=== PATIENT | male | born 1965 | race Caucasian/White ===

== ENCOUNTER 2018-10-22 15:54 | Inpatient (IN) | payer MEDICAID ==
--- NOTE | 2018-10-22 16:50 | PCM.HP ---
H&P History of Present Illness - General Date of Service: 10/22/18 Admit Problem/Dx: Admission Diagnosis/Problem Admission Diagnosis/Problem SIRS due to infectious process without acute organ dysfunction Source of Information: Patient History Limitations: Reports: No Limitations - History of Present Illness Initial Comments - Free Text/Narative: This is a 53yo M here for nausea, weakness, fever and chills. He has had prior cellulitis of the left lower leg and admission to the hospital 3 times before. He returned to clinic today for assessment and is noted to have lower blood pressure, weakness, fever, chills, and cellulitis of the left lower leg that is worsening. He did take a keflex and a doxycycline today. Patient denies any chest pain or shortness of breath. Onset of Symptoms: Reports: Gradual Duration of Symptoms: Reports: Day(s):, Getting Worse Location: Reports: Lower Extremity, Left, Generalized Severity: Moderate Improves with: Reports: None Worsens with: Reports: None Associated Symptoms: Reports: Fever/Chills, Loss of Appetite, Malaise, Nausea/ Vomiting, Weakness - Related Data Allergies/Adverse Reactions: Allergies Allergy/AdvReac Type Severity Reaction Status Date / Time No Known Allergies Allergy Verified 10/22/18 16:39 Home Medications: Home Meds NK [No Known Home Meds] 10/22/18 [History] H&P Review of Systems - Review of Systems: Review Of Systems: ROS reveals no pertinent complaints other than HPI. Exam - Exam Exam: See Below - Exam General: Alert, Oriented, Cooperative HEENT: PERRLA, Conjunctiva Clear, EACs Clear, EOMI Neck: Supple, Trachea Midline Lungs: Clear to Auscultation, Normal Respiratory Effort Cardiovascular: Regular Rate, Regular Rhythm GI/Abdominal Exam: Normal Bowel Sounds, Soft, Non-Tender Back Exam: Normal Inspection Extremities: Other (left lower leg redness and erythema) Skin: Other (left lower leg cellulitis) Neuro Extensive - Mental Status: Alert, Oriented x3, Normal Mood/Affect - Patient Data Lab Results Last 24 hrs: Laboratory Results - last 24 hr 10/22/18 10/22/18 10/22/18 Range/Units 16:06 16:06 16:06 WBC 13.3 H (4.0-11.0) K/uL RBC 5.44 (4.50-6.50) M/uL Hgb 16.5 (13.0-18.0) g/dL Hct 47.2 (40.0-54.0) % MCV 87 (76-96) fL MCH 30.3 (27.0-32.0) pg MCHC 35.0 (31.0-35.0) g/dL RDW 12.7 (11.0-16.0) % Plt Count 137 L (150-400) K/uL MPV 10.0 (6.0-10.0) fL Neut % (Auto) 95.2 H (45.0-70.0) % Lymph % (Auto) 1.8 L (20.0-40.0) % [place] % (Auto) 2.9 L (3.0-10.0) % Eos % (Auto) 0.0 L (1.0-5.0) % Baso % (Auto) 0.1 (0.0-0.5) % Neut # (Auto) 12.68 H (2.00-7.50) K/uL Lymph # (Auto) 0.24 L (1.50-4.00) K/uL [place] # (Auto) 0.38 (0.20-0.80) K/uL Eos # (Auto) 0.00 L (0.04-0.40) K/uL Baso # (Auto) 0.01 L (0.02-0.10) K/uL Sodium 140 (136-145) mmol/L Potassium 3.5 (3.5-5.1) mmol/L Chloride 104 (98-107) mmol/L Carbon Dioxide 26.3 (21.0-32.0) mmol/L Anion Gap 13.2 (5.0-15.0) mmol/L BUN 25 (8-26) mg/dL Creatinine 1.45 H (0.70-1.30) mg/dL Est Cr Clr Drug Dosing TNP Estimated GFR (MDRD) 51 L (>60) MLS/MIN BUN/Creatinine Ratio 17.2 (6-25) Glucose 113 H (74-100) mg/dL Lactic Acid 3.32 H (0.90-1.70) mmol/L Calcium 8.6 (8.5-10.1) mg/dL Result Diagrams: 10/22/18 16:06 10/22/18 16:06 - Problem List (1) SIRS (systemic inflammatory response syndrome) SNOMED Code(s): 882063956 ICD Code: R65.10 - SIRS OF NON-INFECTIOUS ORIGIN W/O ACUTE ORGAN DYSFUNCTION Status: Acute Priority: High Current Visit: Yes (2) Cellulitis and abscess of left leg SNOMED Code(s): 872547044 ICD Code: L03.116 - CELLULITIS OF LEFT LOWER LIMB; L02.416 - CUTANEOUS ABSCESS OF LEFT LOWER LIMB Status: Acute Priority: High Current Visit: Yes Problem List Initiated/Reviewed/Updated: Yes Orders Last 24hrs: Active Orders 24 hr Category Date Time Status Patient Status [ADT] Routine ADT 10/22/18 16:42 Ordered Oxygen Therapy [RC] PRN Care 10/22/18 16:42 Ordered Vital Signs [RC] Q4H Care 10/22/18 16:42 Ordered Regular Diet [DIET] Diet 10/22/18 Dinner Ordered BASIC METABOLIC PANEL,BMP [CHEM] AM Lab 10/23/18 05:11 Ordered BASIC METABOLIC PANEL,BMP [CHEM] AM Lab 10/24/18 05:11 Ordered BASIC METABOLIC PANEL,BMP [CHEM] AM Lab 10/25/18 05:11 Ordered CBC WITH AUTO DIFF [HEME] AM Lab 10/23/18 05:11 Ordered CBC WITH AUTO DIFF [HEME] AM Lab 10/24/18 05:11 Ordered CBC WITH AUTO DIFF [HEME] AM Lab 10/25/18 05:11 Ordered CULTURE BLOOD [BC] Routine Lab 10/22/18 16:41 Ordered CULTURE BLOOD [BC] Routine Lab 10/22/18 16:56 Ordered CULTURE MRSA SURVEY [RM] Routine Lab 10/22/18 16:42 Ordered Piperacillin/Tazobactam [Zosyn] 4.5 gm Med 10/22/18 16:45 Ordered Sodium Chloride 0.9% [Normal Saline] 100 ml IV Q6H Medication Orders Piperacillin Sod/Tazobactam (Sod 4.5 gm/ Sodium Chloride) 100 mls @ 200 mls/hr IV Q6H [facility] Assessment/Plan Comment:: Patient to be admitted for IV antibiotics. We will monitor fever, low BP and vitals closely. Cultures to be done and f/u. IVF started.
[2018-10-22] MEDS ORDERED: Acetaminophen 325 MG Tab ONE (17:21)
[2018-10-22] MEDS: Piperacillin/Tazobactam 4.5 GM in Sodium Chloride 0.9% 100 ML IV SCH ×2 (17:23→22:50)
[2018-10-22] MEDS: Acetaminophen 325 MG Tab PO PRN ×2 (17:23→21:09)
[2018-10-22] MEDS: Sodium Chloride 0.9% 1,000 ML IV SCH ×2 (17:55→23:50)
[2018-10-22] MEDS ORDERED: Acetaminophen/oxyCODONE 325-5 MG Tab PO PRN (23:36)
[2018-10-22] MEDS ORDERED: Acetaminophen/oxyCODONE 325-10 MG Tab ONE (23:41)
[2018-10-22] MEDS ORDERED: oxyCODONE 5 MG Tab ONE (23:46)
[2018-10-23] MEDS: Piperacillin/Tazobactam 4.5 GM in Sodium Chloride 0.9% 100 ML IV SCH ×5 (04:47→23:23)
[2018-10-23] MEDS: oxyCODONE 5 MG Tab PO PRN ×2 (04:50→19:30)
[2018-10-23] MEDS: Sodium Chloride 0.9% 1,000 ML IV SCH ×2 (06:17→19:57)
--- NOTE | 2018-10-23 06:53 | PCM.PN ---
- General Info Date of Service: 10/23/18 Subjective Update: Patient states his chills have resolved. He denies any fever at this time. Patient notes continued redness of the left lower leg. No shortness of breath or chest pain. Patient had some joint and back pain last night which was relieved by oxycodone. Functional Status: Reports: Pain Controlled - Review of Systems General: Reports: No Symptoms HEENT: Reports: No Symptoms Pulmonary: Reports: No Symptoms Cardiovascular: Reports: No Symptoms Gastrointestinal: Reports: No Symptoms Genitourinary: Reports: No Symptoms Musculoskeletal: Reports: No Symptoms Skin: Reports: Other (erythema, redness of the left lower leg) Neurological: Reports: No Symptoms Psychiatric: Reports: No Symptoms - Patient Data Vitals - Most Recent: Last Vital Signs Temp 36.6 C 10/23/18 04:58 Pulse 80 10/23/18 04:58 Resp 18 10/23/18 04:58 BP 90/59 L 10/23/18 04:58 Pulse Ox 97 10/23/18 04:58 Weight - Most Recent: 139.763 kg I&O - Last 24 Hours: Intake & Output 10/22/18 10/22/18 10/23/18 14:59 22:59 06:59 Output Total 200 Balance -200 Lab Results Last 24 Hours: Laboratory Results - last 24 hr 10/22/18 10/22/18 10/22/18 Range/Units 16:06 16:06 16:06 WBC 13.3 H (4.0-11.0) K/uL RBC 5.44 (4.50-6.50) M/uL Hgb 16.5 (13.0-18.0) g/dL Hct 47.2 (40.0-54.0) % MCV 87 (76-96) fL MCH 30.3 (27.0-32.0) pg MCHC 35.0 (31.0-35.0) g/dL RDW 12.7 (11.0-16.0) % Plt Count 137 L (150-400) K/uL MPV 10.0 (6.0-10.0) fL Neut % (Auto) 95.2 H (45.0-70.0) % Lymph % (Auto) 1.8 L (20.0-40.0) % [place] % (Auto) 2.9 L (3.0-10.0) % Eos % (Auto) 0.0 L (1.0-5.0) % Baso % (Auto) 0.1 (0.0-0.5) % Neut # (Auto) 12.68 H (2.00-7.50) K/uL Lymph # (Auto) 0.24 L (1.50-4.00) K/uL [place] # (Auto) 0.38 (0.20-0.80) K/uL Eos # (Auto) 0.00 L (0.04-0.40) K/uL Baso # (Auto) 0.01 L (0.02-0.10) K/uL Sodium 140 (136-145) mmol/L Potassium 3.5 (3.5-5.1) mmol/L Chloride 104 (98-107) mmol/L Carbon Dioxide 26.3 (21.0-32.0) mmol/L Anion Gap 13.2 (5.0-15.0) mmol/L BUN 25 (8-26) mg/dL Creatinine 1.45 H (0.70-1.30) mg/dL Est Cr Clr Drug Dosing TNP Estimated GFR (MDRD) 51 L (>60) MLS/MIN BUN/Creatinine Ratio 17.2 (6-25) Glucose 113 H (74-100) mg/dL Lactic Acid 3.32 H (0.90-1.70) mmol/L Calcium 8.6 (8.5-10.1) mg/dL Med Orders - Current: Current Medications Acetaminophen (Tylenol) 650 mg PO Q4H PRN PRN Reason: Fever Last Admin: 10/22/18 21:09 Dose: 650 mg Piperacillin Sod/Tazobactam (Sod 4.5 gm/ Sodium Chloride) 100 mls @ 200 mls/hr IV Q6H [facility] Last Admin: 10/23/18 04:47 Dose: 200 mls/hr Sodium Chloride (Normal Saline) 1,000 mls @ 150 mls/hr IV ASDIRECTED [facility] Last Admin: 10/23/18 06:17 Dose: 150 mls/hr Oxycodone HCl (Oxycodone) 5 mg PO Q4H PRN PRN Reason: Pain (moderate 4-6) Last Admin: 10/23/18 04:50 Dose: 5 mg Discontinued Medications Acetaminophen (Tylenol) Confirm Administered Dose 650 mg .ROUTE .STK-MED ONE Stop: 10/22/18 17:22 Last Admin: 10/22/18 19:10 Dose: Not Given Oxycodone HCl (Oxycodone) Confirm Administered Dose 5 mg .ROUTE .STK-MED ONE Stop: 10/22/18 23:47 Last Admin: 10/22/18 23:57 Dose: 5 mg Oxycodone/Acetaminophen (Percocet 325-10 Mg) Confirm Administered Dose 1 tab .ROUTE .STK-MED ONE Stop: 10/22/18 23:42 - Exam General: Alert, Oriented HEENT: Pupils Equal, Pupils Reactive, EOMI Neck: Supple Lungs: Clear to Auscultation, Normal Respiratory Effort Cardiovascular: Regular Rate, Regular Rhythm GI/Abdominal Exam: Normal Bowel Sounds Back Exam: Normal Inspection Extremities: Normal Inspection Peripheral Pulses: 2+: Dorsalis Pedis (L), Dorsalis Pedis (R) Skin: Warm, Dry, Intact, Other (erythema of the left lower leg - marked borders stable and have receded slightly at proximal borders and slight movement down on distal border to ankle) Neurological: No New Focal Deficit Psy/Mental Status: Alert, Normal Affect, Normal Mood - Problem List & Annotations (1) SIRS (systemic inflammatory response syndrome) SNOMED Code(s): 837069787 Code(s): R65.10 - SIRS OF NON-INFECTIOUS ORIGIN W/O ACUTE ORGAN DYSFUNCTION Status: Acute Priority: High Current Visit: Yes (2) Cellulitis and abscess of left leg SNOMED Code(s): 480257647 Code(s): L03.116 - CELLULITIS OF LEFT LOWER LIMB; L02.416 - CUTANEOUS ABSCESS OF LEFT LOWER LIMB Status: Acute Priority: High Current Visit: Yes - Problem List Review Problem List Initiated/Reviewed/Updated: Yes - My Orders Last 24 Hours: My Active Orders 10/22/18 16:42 Patient Status [ADT] Routine Oxygen Therapy [RC] PRN Vital Signs [RC] Q4H 10/22/18 16:45 CULTURE BLOOD [BC] Routine CULTURE MRSA SURVEY [RM] Routine 10/22/18 17:00 CULTURE BLOOD [BC] Routine Piperacillin/Tazobactam [Zosyn] 4.5 gm Sodium Chloride 0.9% [Normal Saline] 100 ml IV Q6H Sodium Chloride 0.9% [Normal Saline] 1,000 ml IV ASDIRECTED 10/22/18 17:19 Acetaminophen [Tylenol] 650 mg PO Q4H PRN 10/22/18 23:55 oxyCODONE 5 mg PO Q4H PRN 10/22/18 Dinner Regular Diet [DIET] 10/23/18 05:11 BASIC METABOLIC PANEL,BMP [CHEM] AM CBC WITH AUTO DIFF [HEME] AM 10/24/18 05:11 BASIC METABOLIC PANEL,BMP [CHEM] AM CBC WITH AUTO DIFF [HEME] AM 10/25/18 05:11 BASIC METABOLIC PANEL,BMP [CHEM] AM CBC WITH AUTO DIFF [HEME] AM - Plan Plan:: Patient to be admitted for IV antibiotics. We will monitor fever, low BP and vitals closely. Cultures to be done and f/u. IVF started. 10/23/18 improved pulse rate. We will continue to monitor BP. F/u labs today. Patient improvement seen and we will continue Zosyn at this time.
[2018-10-23] MEDS: Acetaminophen 325 MG Tab PO PRN (15:28)
[2018-10-24] MEDS: oxyCODONE 5 MG Tab PO PRN ×3 (02:48→20:15)
[2018-10-24] MEDS: Acetaminophen 325 MG Tab PO PRN (02:49)
[2018-10-24] MEDS: Sodium Chloride 0.9% 1,000 ML IV SCH ×3 (02:59→15:05)
[2018-10-24] MEDS: Piperacillin/Tazobactam 4.5 GM in Sodium Chloride 0.9% 100 ML IV SCH ×5 (04:41→23:32)
[2018-10-24] MEDS ORDERED: Vancomycin 1 GM SDV IV SCH (11:00)
--- NOTE | 2018-10-24 11:31 | PCM.PN ---
- General Info Date of Service: 10/24/18 Subjective Update: Patient feels the same. He does notice some improvement of the cellulitis. He denies any fever or chills. No shortness of breath or chest pains. He does note a new lesion of the left anterior thigh despite improvement of the current left lower leg cellulitis. - Review of Systems General: Reports: No Symptoms HEENT: Reports: No Symptoms Pulmonary: Reports: No Symptoms Cardiovascular: Reports: No Symptoms Gastrointestinal: Reports: No Symptoms Genitourinary: Reports: No Symptoms Musculoskeletal: Reports: No Symptoms Skin: Reports: Other (erythema of the left anterior thigh, raised and red 8x13cm ; left lower leg erythema improving) Neurological: Reports: No Symptoms Psychiatric: Reports: No Symptoms - Patient Data Vitals - Most Recent: Last Vital Signs Temp 36.4 C 10/24/18 08:00 Pulse 60 10/24/18 08:00 Resp 15 10/24/18 08:00 BP 105/57 L 10/24/18 08:00 Pulse Ox 100 10/24/18 08:00 Weight - Most Recent: 139.706 kg I&O - Last 24 Hours: Intake & Output 10/23/18 10/24/18 10/24/18 22:59 06:59 14:59 Intake Total 500 2210 Output Total 525 350 325 Balance -25 1860 -325 Lab Results Last 24 Hours: Laboratory Results - last 24 hr 10/24/18 10/24/18 Range/Units 07:05 07:05 WBC 6.9 D (4.0-11.0) K/uL RBC 4.08 L (4.50-6.50) M/uL Hgb 12.6 L (13.0-18.0) g/dL Hct 36.3 L (40.0-54.0) % MCV 89 (76-96) fL MCH 30.9 (27.0-32.0) pg MCHC 34.7 (31.0-35.0) g/dL RDW 13.0 (11.0-16.0) % Plt Count 99 L (150-400) K/uL MPV 10.7 H (6.0-10.0) fL Neut % (Auto) 82.1 H (45.0-70.0) % Lymph % (Auto) 12.6 L (20.0-40.0) % [place] % (Auto) 4.6 (3.0-10.0) % Eos % (Auto) 0.6 L (1.0-5.0) % Baso % (Auto) 0.1 (0.0-0.5) % Neut # (Auto) 5.68 (2.00-7.50) K/uL Lymph # (Auto) 0.87 L (1.50-4.00) K/uL [place] # (Auto) 0.32 (0.20-0.80) K/uL Eos # (Auto) 0.04 (0.04-0.40) K/uL Baso # (Auto) 0.01 L (0.02-0.10) K/uL Sodium 140 (136-145) mmol/L Potassium 3.7 (3.5-5.1) mmol/L Chloride 106 (98-107) mmol/L Carbon Dioxide 25.8 (21.0-32.0) mmol/L Anion Gap 11.9 (5.0-15.0) mmol/L BUN 15 D (8-26) mg/dL Creatinine 1.09 (0.70-1.30) mg/dL Est Cr Clr Drug Dosing 106.26 mL/min Estimated GFR (MDRD) > 60 (>60) MLS/MIN BUN/Creatinine Ratio 13.8 (6-25) Glucose 101 H (74-100) mg/dL Calcium 7.7 L (8.5-10.1) mg/dL Basil Results Last 24 Hours: Microbiology 10/22/18 16:45 Aerobic Blood Culture - Preliminary Blood NO GROWTH AFTER 1 DAY Anaerobic Blood Culture - Preliminary NO GROWTH AFTER 1 DAY 10/22/18 17:00 Aerobic Blood Culture - Preliminary Blood NO GROWTH AFTER 1 DAY Anaerobic Blood Culture - Preliminary NO GROWTH AFTER 1 DAY 10/22/18 16:45 MRSA Surveillance Culture - Final Nares, Right NO MRSA ISOLATED Med Orders - Current: Current Medications Acetaminophen (Tylenol) 650 mg PO Q4H PRN PRN Reason: Fever Last Admin: 10/24/18 02:49 Dose: 650 mg Sodium Chloride (Normal Saline) 1,000 mls @ 150 mls/hr IV ASDIRECTED [facility] Last Admin: 10/24/18 10:20 Dose: 150 mls/hr Piperacillin Sod/Tazobactam (Sod 4.5 gm/ Sodium Chloride) 100 mls @ 200 mls/hr IV Q6H [facility] Last Admin: 10/24/18 10:33 Dose: 200 mls/hr Vancomycin HCl 2 gm/ Sodium (Chloride) 250 mls @ 125 mls/hr IV BID [facility] Oxycodone HCl (Oxycodone) 5 mg PO Q4H PRN PRN Reason: Pain (moderate 4-6) Last Admin: 10/24/18 10:22 Dose: 5 mg Discontinued Medications Acetaminophen (Tylenol) Confirm Administered Dose 650 mg .ROUTE .STK-MED ONE Stop: 10/22/18 17:22 Last Admin: 10/22/18 19:10 Dose: Not Given Piperacillin Sod/Tazobactam (Sod 4.5 gm/ Sodium Chloride) 100 mls @ 200 mls/hr IV Q6H [facility] Last Admin: 10/23/18 10:55 Dose: 200 mls/hr Oxycodone HCl (Oxycodone) Confirm Administered Dose 5 mg .ROUTE .STK-MED ONE Stop: 10/22/18 23:47 Last Admin: 10/22/18 23:57 Dose: 5 mg Oxycodone/Acetaminophen (Percocet 325-10 Mg) Confirm Administered Dose 1 tab .ROUTE .STK-MED ONE Stop: 10/22/18 23:42 Last Admin: 10/23/18 19:28 Dose: Not Given - Exam General: Alert, Oriented, Cooperative HEENT: Pupils Equal, Pupils Reactive, EOMI, Mucous Membr. Moist/[place] Neck: Supple Lungs: Clear to Auscultation, Normal Respiratory Effort Cardiovascular: Regular Rate, Regular Rhythm GI/Abdominal Exam: Normal Bowel Sounds Back Exam: Normal Inspection Extremities: Pedal Edema, Other (left lower leg erythema and swelling improved and improved marked borders. left anterior thigh findings are new red raised 8x15cm) - Problem List & Annotations (1) SIRS (systemic inflammatory response syndrome) SNOMED Code(s): 469366927 Code(s): R65.10 - SIRS OF NON-INFECTIOUS ORIGIN W/O ACUTE ORGAN DYSFUNCTION Status: Acute Priority: High Current Visit: Yes (2) Cellulitis and abscess of left leg SNOMED Code(s): 708961936 Code(s): L03.116 - CELLULITIS OF LEFT LOWER LIMB; L02.416 - CUTANEOUS ABSCESS OF LEFT LOWER LIMB Status: Acute Priority: High Current Visit: Yes (3) Cellulitis of thigh SNOMED Code(s): 15289592 Code(s): L03.119 - CELLULITIS OF UNSPECIFIED PART OF LIMB Status: Acute Current Visit: Yes Annotation/Comment:: New complication. We will need to start further antibiotics as current antibiotics may only cover the previous cellulitis. - Problem List Review Problem List Initiated/Reviewed/Updated: Yes - My Orders Last 24 Hours: My Active Orders 10/23/18 11:00 Piperacillin/Tazobactam [Zosyn] 4.5 gm Sodium Chloride 0.9% [Normal Saline] 100 ml IV Q6H 10/24/18 06:04 Code Status [Resuscitation Status] Routine 10/24/18 08:00 Vancomycin 2 gm Sodium Chloride 0.9% [Normal Saline] 250 ml IV BID 10/24/18 11:27 LACTIC ACID [CHEM] Routine 10/25/18 05:11 BASIC METABOLIC PANEL,BMP [CHEM] AM CBC WITH AUTO DIFF [HEME] AM - Plan Plan:: Patient to be admitted for IV antibiotics. We will monitor fever, low BP and vitals closely. Cultures to be done and f/u. IVF started. 10/23/18 improved pulse rate. We will continue to monitor BP. F/u labs today. Patient improvement seen and we will continue Zosyn at this time. 10/24/18 Vancomycin to be started due to new onset Cellulitis in a new location that is not covered by current antibiotics. . This complicates current cellulitis
[2018-10-24] MEDS ORDERED: Lactobacillus Acidophilus/Lactobacillus Sporogenes (Probiotic) Tab ONE (14:33)
[2018-10-24] MEDS: Lactobacillus Acidophilus/Lactobacillus Sporogenes (Probiotic) Tab PO SCH (14:39)
[2018-10-25] MEDS: Acetaminophen 325 MG Tab PO PRN ×2 (02:36→21:14)
[2018-10-25] MEDS: oxyCODONE 5 MG Tab PO PRN ×2 (02:38→21:15)
[2018-10-25] MEDS: Sodium Chloride 0.9% 1,000 ML IV SCH (04:05)
[2018-10-25] MEDS: Piperacillin/Tazobactam 4.5 GM in Sodium Chloride 0.9% 100 ML IV SCH ×3 (04:57→16:50)
[2018-10-25] MEDS: Lactobacillus Acidophilus/Lactobacillus Sporogenes (Probiotic) Tab PO SCH (11:43)
--- NOTE | 2018-10-25 16:45 | PCM.PN ---
- General Info Date of Service: 10/25/18 Subjective Update: Patient states he is feeling ok. He denies much improvement from yesterday symptomatically but does note that the rash has improved slightly both of the left lower leg and also the anterior left thigh lesion. Patient denies any fever and no chills. Denies any shortness of breath and no chest pain. He has a good diet and eating well. Functional Status: Reports: Tolerating Diet - Review of Systems General: Reports: No Symptoms HEENT: Reports: No Symptoms Pulmonary: Reports: No Symptoms Cardiovascular: Reports: No Symptoms Gastrointestinal: Reports: No Symptoms Skin: Reports: Rash, Other (erythema of the left anterior thigh 8x13cm improved erythema and decreased warmth) Neurological: Reports: No Symptoms Psychiatric: Reports: No Symptoms - Patient Data Vitals - Most Recent: Last Vital Signs Temp 36.7 C 10/25/18 12:00 Pulse 60 10/25/18 12:00 Resp 17 10/25/18 05:04 BP 115/72 10/25/18 12:00 Pulse Ox 100 10/25/18 12:00 Weight - Most Recent: 139.706 kg I&O - Last 24 Hours: Intake & Output 10/25/18 10/25/18 10/25/18 06:59 14:59 22:59 Intake Total 2078 Output Total 1075 Balance 1003 Lab Results Last 24 Hours: Laboratory Results - last 24 hr 10/25/18 10/25/18 Range/Units 10:30 10:35 WBC 4.8 D (4.0-11.0) K/uL RBC 4.13 L (4.50-6.50) M/uL Hgb 12.4 L (13.0-18.0) g/dL Hct 37.0 L (40.0-54.0) % MCV 90 (76-96) fL MCH 30.0 (27.0-32.0) pg MCHC 33.5 (31.0-35.0) g/dL RDW 13.2 (11.0-16.0) % Plt Count 109 L (150-400) K/uL MPV 10.8 H (6.0-10.0) fL Neut % (Auto) 76.9 H (45.0-70.0) % Lymph % (Auto) 16.8 L (20.0-40.0) % [place] % (Auto) 5.0 (3.0-10.0) % Eos % (Auto) 1.1 (1.0-5.0) % Baso % (Auto) 0.2 (0.0-0.5) % Neut # (Auto) 3.66 (2.00-7.50) K/uL Lymph # (Auto) 0.80 L (1.50-4.00) K/uL [place] # (Auto) 0.24 (0.20-0.80) K/uL Eos # (Auto) 0.05 (0.04-0.40) K/uL Baso # (Auto) 0.01 L (0.02-0.10) K/uL Sodium 142 (136-145) mmol/L Potassium 3.7 (3.5-5.1) mmol/L Chloride 108 H (98-107) mmol/L Carbon Dioxide 30.0 (21.0-32.0) mmol/L Anion Gap 7.7 (5.0-15.0) mmol/L BUN 9 D (8-26) mg/dL Creatinine 1.05 (0.70-1.30) mg/dL Est Cr Clr Drug Dosing 110.31 mL/min Estimated GFR (MDRD) > 60 (>60) MLS/MIN BUN/Creatinine Ratio 8.6 (6-25) Glucose 126 H (74-100) mg/dL Calcium 8.3 L (8.5-10.1) mg/dL Basil Results Last 24 Hours: Microbiology 10/22/18 17:00 Aerobic Blood Culture - Preliminary Blood NO GROWTH AFTER 2 DAYS Anaerobic Blood Culture - Preliminary NO GROWTH AFTER 2 DAYS 10/22/18 16:45 Aerobic Blood Culture - Preliminary Blood NO GROWTH AFTER 2 DAYS Anaerobic Blood Culture - Preliminary NO GROWTH AFTER 2 DAYS Med Orders - Current: Current Medications Acetaminophen (Tylenol) 650 mg PO Q4H PRN PRN Reason: Fever Last Admin: 10/25/18 02:36 Dose: 650 mg Piperacillin Sod/Tazobactam (Sod 4.5 gm/ Sodium Chloride) 100 mls @ 200 mls/hr IV Q6H [facility] Last Admin: 10/25/18 11:43 Dose: 200 mls/hr Vancomycin HCl 2 gm/ Sodium (Chloride) 250 mls @ 125 mls/hr IV BID [facility] Last Admin: 10/25/18 08:24 Dose: 125 mls/hr Sodium Chloride (Normal Saline) 1,000 mls @ 75 mls/hr IV ASDIRECTED [facility] Last Admin: 10/25/18 04:05 Dose: 75 mls/hr Lactobacillus Acidophilus (Acidolphilus Extra Strength) 1 tab PO DAILY@1200 [facility] Last Admin: 10/25/18 11:43 Dose: 1 tab Oxycodone HCl (Oxycodone) 5 mg PO Q4H PRN PRN Reason: Pain (moderate 4-6) Last Admin: 10/25/18 02:38 Dose: 5 mg Discontinued Medications Acetaminophen (Tylenol) Confirm Administered Dose 650 mg .ROUTE .STK-MED ONE Stop: 10/22/18 17:22 Last Admin: 10/22/18 19:10 Dose: Not Given Piperacillin Sod/Tazobactam (Sod 4.5 gm/ Sodium Chloride) 100 mls @ 200 mls/hr IV Q6H [facility] Last Admin: 10/23/18 10:55 Dose: 200 mls/hr Sodium Chloride (Normal Saline) 1,000 mls @ 150 mls/hr IV ASDIRECTED [facility] Last Admin: 10/24/18 10:20 Dose: 150 mls/hr Lactobacillus Acidophilus (Acidolphilus Extra Strength) Confirm Administered Dose 1 tab .ROUTE .STK-MED ONE Stop: 10/24/18 14:34 Last Admin: 10/24/18 17:02 Dose: Not Given Oxycodone HCl (Oxycodone) Confirm Administered Dose 5 mg .ROUTE .STK-MED ONE Stop: 10/22/18 23:47 Last Admin: 10/22/18 23:57 Dose: 5 mg Oxycodone/Acetaminophen (Percocet 325-10 Mg) Confirm Administered Dose 1 tab .ROUTE .STK-MED ONE Stop: 10/22/18 23:42 Last Admin: 10/23/18 19:28 Dose: Not Given - Exam General: Alert, Oriented, Cooperative HEENT: Pupils Equal, Pupils Reactive, EOMI Neck: Supple Lungs: Clear to Auscultation, Normal Respiratory Effort Cardiovascular: Regular Rate, Regular Rhythm GI/Abdominal Exam: Normal Bowel Sounds Back Exam: Normal Inspection Extremities: Normal Inspection Skin: Warm, Dry, Intact, Other (erythema of the left anterior thigh 8x13cm but less redness from yesterday; left lower leg erythema does appeared to have improved but did appear to worsen slightly yesterday evening.) Neurological: No New Focal Deficit Psy/Mental Status: Alert, Normal Affect, Normal Mood - Problem List & Annotations (1) SIRS (systemic inflammatory response syndrome) SNOMED Code(s): 144096980 Code(s): R65.10 - SIRS OF NON-INFECTIOUS ORIGIN W/O ACUTE ORGAN DYSFUNCTION Status: Acute Priority: High Current Visit: Yes (2) Cellulitis and abscess of left leg SNOMED Code(s): 409868566 Code(s): L03.116 - CELLULITIS OF LEFT LOWER LIMB; L02.416 - CUTANEOUS ABSCESS OF LEFT LOWER LIMB Status: Acute Priority: High Current Visit: Yes (3) Cellulitis of thigh SNOMED Code(s): 83780917 Code(s): L03.119 - CELLULITIS OF UNSPECIFIED PART OF LIMB Status: Acute Priority: High Current Visit: Yes Annotation/Comment:: New complication. We will need to start further antibiotics as current antibiotics may only cover the previous cellulitis. - Problem List Review Problem List Initiated/Reviewed/Updated: Yes - My Orders Last 24 Hours: My Active Orders 10/25/18 12:00 Acidophilus/Lactobac Spor [Acidolphilus Extra Strength] 1 tab PO DAILY@1200 - Plan Plan:: Patient to be admitted for IV antibiotics. We will monitor fever, low BP and vitals closely. Cultures to be done and f/u. IVF started. 10/23/18 improved pulse rate. We will continue to monitor BP. F/u labs today. Patient improvement seen and we will continue Zosyn at this time. 10/25/18 Improved anterior thigh lesion. We will f/u trough and adjust accordingly. Recheck labs in am.
[2018-10-26] MEDS: Piperacillin/Tazobactam 4.5 GM in Sodium Chloride 0.9% 100 ML IV SCH ×3 (00:05→11:08)
[2018-10-26] MEDS: Acetaminophen 325 MG Tab PO PRN (05:16)
[2018-10-26] MEDS: oxyCODONE 5 MG Tab PO PRN (05:17)
[2018-10-26] MEDS: Lactobacillus Acidophilus/Lactobacillus Sporogenes (Probiotic) Tab PO SCH (11:50)
--- NOTE | 2018-10-26 13:00 | PCM.DCSUM1 ---
Discharge Summary - Discharge Data Discharge Date: 10/26/18 Discharge Disposition: Home, Self-Care 01 Condition: Good - Discharge Diagnosis/Problem(s) (1) SIRS (systemic inflammatory response syndrome) SNOMED Code(s): 665841249 ICD Code: R65.10 - SIRS OF NON-INFECTIOUS ORIGIN W/O ACUTE ORGAN DYSFUNCTION Status: Resolved Priority: High Current Visit: Yes (2) Cellulitis and abscess of left leg SNOMED Code(s): 856652861 ICD Code: L03.116 - CELLULITIS OF LEFT LOWER LIMB; L02.416 - CUTANEOUS ABSCESS OF LEFT LOWER LIMB Status: Resolved Priority: High Current Visit: Yes (3) Cellulitis of thigh SNOMED Code(s): 44050561 ICD Code: L03.119 - CELLULITIS OF UNSPECIFIED PART OF LIMB Status: Resolved Priority: High Current Visit: Yes Problem Details: New complication. We will need to start further antibiotics as current antibiotics may only cover the previous cellulitis. - Patient Instructions Diet: Heart Healthy Diet Activity: As Tolerated - Discharge Plan Home Medications: Home Meds NK [No Known Home Meds] 10/22/18 [History] - Discharge Summary/Plan Comment DC Time >30 min.: No Discharge Summary/Plan Comment: Counseled on continued antibiotics orally until finished. Discussed f/u in clinic this week. Rtc to ER if symptoms return. Patient to be referred to ID at [facility]. - Patient Data Vitals - Most Recent: Last Vital Signs Temp 36.8 C 10/26/18 12:00 Pulse 50 L 10/26/18 12:00 Resp 16 10/26/18 06:30 BP 112/69 10/26/18 12:00 Pulse Ox 97 10/26/18 12:00 Weight - Most Recent: 139.706 kg I&O - Last 24 hours: Intake & Output 10/25/18 10/26/18 10/26/18 22:59 06:59 14:59 Intake Total 3605 1650 Output Total 2250 2375 Balance 1355 -725 Lab Results - Last 24 hrs: Laboratory Results - last 24 hr 10/25/18 10/26/18 10/26/18 Range/Units 19:30 09:45 09:45 WBC 4.9 (4.0-11.0) K/uL RBC 4.40 L (4.50-6.50) M/uL Hgb 13.3 (13.0-18.0) g/dL Hct 39.4 L (40.0-54.0) % MCV 90 (76-96) fL MCH 30.2 (27.0-32.0) pg MCHC 33.8 (31.0-35.0) g/dL RDW 13.1 (11.0-16.0) % Plt Count 138 L D (150-400) K/uL MPV 10.7 H (6.0-10.0) fL Neut % (Auto) 71.3 H (45.0-70.0) % Lymph % (Auto) 19.6 L (20.0-40.0) % [place] % (Auto) 6.5 (3.0-10.0) % Eos % (Auto) 2.2 (1.0-5.0) % Baso % (Auto) 0.4 (0.0-0.5) % Neut # (Auto) 3.49 (2.00-7.50) K/uL Lymph # (Auto) 0.96 L (1.50-4.00) K/uL [place] # (Auto) 0.32 (0.20-0.80) K/uL Eos # (Auto) 0.11 (0.04-0.40) K/uL Baso # (Auto) 0.02 (0.02-0.10) K/uL Sodium 143 (136-145) mmol/L Potassium 3.9 (3.5-5.1) mmol/L Chloride 107 (98-107) mmol/L Carbon Dioxide 30.1 (21.0-32.0) mmol/L Anion Gap 9.8 (5.0-15.0) mmol/L BUN 9 (8-26) mg/dL Creatinine 1.16 (0.70-1.30) mg/dL Est Cr Clr Drug Dosing 99.85 mL/min Estimated GFR (MDRD) > 60 (>60) MLS/MIN BUN/Creatinine Ratio 7.8 (6-25) Glucose 106 H (74-100) mg/dL Calcium 8.7 (8.5-10.1) mg/dL Vancomycin Trough 11.5 (10.0-15.0) ug/mL NUBIA Results - Last 24 hrs: Microbiology 10/22/18 16:45 Aerobic Blood Culture - Preliminary Blood NO GROWTH AFTER 3 DAYS Anaerobic Blood Culture - Preliminary NO GROWTH AFTER 3 DAYS 10/22/18 17:00 Aerobic Blood Culture - Preliminary Blood NO GROWTH AFTER 3 DAYS Anaerobic Blood Culture - Preliminary NO GROWTH AFTER 3 DAYS Med Orders - Current: Current Medications Acetaminophen (Tylenol) 650 mg PO Q4H PRN PRN Reason: Fever Last Admin: 10/26/18 05:16 Dose: 650 mg Piperacillin Sod/Tazobactam (Sod 4.5 gm/ Sodium Chloride) 100 mls @ 200 mls/hr IV Q6H [facility] Last Admin: 10/26/18 11:08 Dose: 200 mls/hr Vancomycin HCl 2 gm/ Sodium (Chloride) 250 mls @ 125 mls/hr IV Q8HR [facility] Last Admin: 10/26/18 06:18 Dose: 125 mls/hr Lactobacillus Acidophilus (Acidolphilus Extra Strength) 1 tab PO DAILY@1200 [facility]EN[facility] Last Admin: 10/26/18 11:50 Dose: 1 tab Oxycodone HCl (Oxycodone) 5 mg PO Q4H PRN PRN Reason: Pain (moderate 4-6) Last Admin: 10/26/18 05:17 Dose: 5 mg Discontinued Medications Acetaminophen (Tylenol) Confirm Administered Dose 650 mg .ROUTE .STK-MED ONE Stop: 10/22/18 17:22 Last Admin: 10/22/18 19:10 Dose: Not Given Piperacillin Sod/Tazobactam (Sod 4.5 gm/ Sodium Chloride) 100 mls @ 200 mls/hr IV Q6H [facility] Last Admin: 10/23/18 10:55 Dose: 200 mls/hr Sodium Chloride (Normal Saline) 1,000 mls @ 150 mls/hr IV ASDIRECTED [facility] Last Admin: 10/24/18 10:20 Dose: 150 mls/hr Vancomycin HCl 2 gm/ Sodium (Chloride) 250 mls @ 125 mls/hr IV BID [facility] Last Admin: 10/25/18 21:53 Dose: Not Given Sodium Chloride (Normal Saline) 1,000 mls @ 75 mls/hr IV ASDIRECTED [facility] Last Admin: 10/25/18 04:05 Dose: 75 mls/hr Lactobacillus Acidophilus (Acidolphilus Extra Strength) Confirm Administered Dose 1 tab .ROUTE .STK-MED ONE Stop: 10/24/18 14:34 Last Admin: 10/24/18 17:02 Dose: Not Given Oxycodone HCl (Oxycodone) Confirm Administered Dose 5 mg .ROUTE .STK-MED ONE Stop: 10/22/18 23:47 Last Admin: 10/22/18 23:57 Dose: 5 mg Oxycodone/Acetaminophen (Percocet 325-10 Mg) Confirm Administered Dose 1 tab .ROUTE .STK-MED ONE Stop: 10/22/18 23:42 Last Admin: 10/23/18 19:28 Dose: Not Given
== END 2018-10-26 15:45 | disposition home or self-care (01) | DRG 603 ==
LOC: LB.CLINIC 15:54 → LB.MS 16:32 → UNDOADMIN 16:32 → LB.MS 16:42
PROVIDERS: ADMIT Family Medicine; ATTEND Family Medicine
DX: L03.116 Cellulitis of left lower limb (principal); R65.10 Systemic inflammatory response syndrome (SIRS) of non-infectious origin without acute organ dysfunction; L02.416 Cutaneous abscess of left lower limb; L03.119 Cellulitis of unspecified part of limb
CPT/HCPCS: 36415; 80048; 80202; 83605; 85025; 87040; A9270-GY; J2543; J3370; J7030; J7050

== ENCOUNTER → 2019-04-09 | Outpatient (CLI) | payer MEDICAID | LOC: LB.CLINIC 10:22 | PROVIDERS: ATTEND Family Medicine | DX: Z12.5 Encounter for screening for malignant neoplasm of prostate (principal) | CPT/HCPCS: 36415; G0103 ==

== ENCOUNTER 2019-04-30 09:06 | Day surgery (SDC) | payer MEDICAID ==
[2019-04-30] MEDS ORDERED: Propofol 1,000 MG/100 ML SDV ONE (12:00)
--- NOTE | 2019-04-30 13:21 | OR ---
DATE OF OPERATION: 04/30/2019 SURGEON: Taco Salmeron MD PREOPERATIVE DIAGNOSIS: Screening colonoscopy. POSTOPERATIVE DIAGNOSIS: Screening colonoscopy. PROCEDURE: Colonoscopy. ANESTHESIA: MAC. ESTIMATED BLOOD LOSS: None. COMPLICATIONS: None. INDICATION FOR THE PROCEDURE: The patient is a 54-year-old male here today for his first screening colonoscopy. No change in bowel habits. No family history. DESCRIPTION OF PROCEDURE: Informed consent was obtained from the patient. The patient was taken to the operating room, placed on the table in a left lateral decubitus position. Monitored anesthesia care was administered. Digital rectal exam performed and was normal. Colonoscope then advanced through the anus, directed toward the cecum. Cecum was reached and identified by the ileocecal valve. He did have a significant amount of green fluid in the cecum. Suction at this point was clogged, unable to clear the suction. Colonoscope then withdrawn and the pediatric colonoscope then utilized in similar fashion reaching the cecum. Cecum was reached and irrigated and suctioned clean. Appendiceal orifice identified. Ileocecal valve identified. Colonoscope was slowly withdrawn. No masses. No polyps. No areas of ischemia or inflammation identified. No AV malformations. Rectum also was unremarkable. Colonoscope then fully withdrawn. FINDINGS: Normal colon. RECOMMENDATION: Would recommend repeat screening colonoscopy in 10 years. REDD/TORY /[id number]
[2019-05-01] MEDS ORDERED: Sodium Chloride 0.9% 1,000 ML IV SCH (10:00)
[2019-05-01] MEDS ORDERED: Metoclopramide 10 MG/2 ML SDV IV PRN (10:00)
== END 2019-04-30 13:40 | disposition home or self-care (01) ==
LOC: LB.SDS 09:06
PROVIDERS: ATTEND Surgery
DX: Z12.11 Encounter for screening for malignant neoplasm of colon (principal)
CPT/HCPCS: G0121; J2704

== ENCOUNTER 2021-04-28 18:17 | Emergency (ER) | payer MEDICAID ==
[2021-04-28] MEDS ORDERED: Sulfamethoxazole/Trimethoprim 800-160 MG Tab ONE (19:00)
[2021-04-28] MEDS ORDERED: Doxycycline 100 MG Cap ONE (19:00)
[2021-04-28] MEDS ORDERED: traMADol 50 MG Tab ONE (19:00)
--- NOTE | 2021-04-28 19:15 | EDM.PDOC ---
ED HPI GENERAL MEDICAL PROBLEM - General Chief Complaint: Skin Complaint Stated Complaint: cellulitis - Related Data Allergies Allergy/AdvReac Type Severity Reaction Status Date / Time No Known Allergies Allergy Verified 10/22/18 16:39 Home Meds: Home Meds Miconazole Nitrate [Lotrimin AF] 133 gm TP BID 04/30/19 [History] Penicillin V Potassium 500 mg PO DAILY 04/30/19 [History] Past Medical History HEENT History: Reports: None Genitourinary History: Reports: Acute Renal Failure Endocrine/Metabolic History: Reports: Vitamin D Deficiency Dermatologic History: Reports: Chronic Cellulitis - Infectious Disease History Infectious Disease History: Reports: Chicken Pox - Past Surgical History HEENT Surgical History: Reports: LASIK Male Surgical History: Reports: None Endocrine Surgical History: Reports: None Dermatological Surgical History: Reports: None Social & Family History - Family History Family Medical History: No Pertinent Family History - Caffeine Use Caffeine Use: Reports: Soda Other Caffeine Use: diet soda Departure - Departure Time of Disposition: 19:15 Disposition: Home, Self-Care 01 Condition: Good Clinical Impression: Cellulitis - Discharge Information *PRESCRIPTION DRUG MONITORING PROGRAM REVIEWED*: No *COPY OF PRESCRIPTION DRUG MONITORING REPORT IN PATIENT FREDRICK: No Instructions: Cellulitis, Adult Referrals: PCP,None [Primary Care Provider] - Additional Instructions: Take Bactrim DS 2 times per day Take Doxycycline 2 times per day Use Tramadol, every 10 days for severe pain only-use ibuprofen or another non- steroidal anti-inflammatory regularly for pain. Apply warm packs to you leg.
--- NOTE | 2021-04-28 19:21 | EDM.PDOC ---
ED HPI GENERAL MEDICAL PROBLEM - General Chief Complaint: Skin Complaint Stated Complaint: cellulitis Time Seen by Provider: 04/28/21 18:50 Source of Information: Reports: Patient, RN Notes Reviewed History Limitations: Reports: No Limitations - History of Present Illness INITIAL COMMENTS - FREE TEXT/NARRATIVE: This patient presents to the emergency department requesting admission for his cellulitis. He states he noticed a reddened area on his left lower leg earlier today. He has had "a fever" and states it was 99 degrees at home. He states he has had chills and body aches today and "has not been able to get warm" but was able to be out on the ice today. Appetite is okay and he is drinking fluids. He states that he has had cellulitis of this leg before and the only medication that it responds to is vancomycin. He states "Tells him that if that happens he should run immediately to the emergency department for treatment. He rates the pain in his leg at 8 out of 10 and states he is used Aleve today for this. He denies other concerns or complaints. - Related Data Allergies Allergy/AdvReac Type Severity Reaction Status Date / Time No Known Allergies Allergy Verified 10/22/18 16:39 Home Meds: Home Meds Miconazole Nitrate [Lotrimin AF] 133 gm TP BID 04/30/19 [History] Penicillin V Potassium 500 mg PO DAILY 04/30/19 [History] Past Medical History HEENT History: Reports: None Genitourinary History: Reports: Acute Renal Failure Endocrine/Metabolic History: Reports: Vitamin D Deficiency Dermatologic History: Reports: Chronic Cellulitis - Infectious Disease History Infectious Disease History: Reports: Chicken Pox - Past Surgical History HEENT Surgical History: Reports: LASIK Male Surgical History: Reports: None Endocrine Surgical History: Reports: None Dermatological Surgical History: Reports: None Social & Family History - Family History Family Medical History: No Pertinent Family History - Caffeine Use Caffeine Use: Reports: Soda Other Caffeine Use: diet soda ED ROS GENERAL - Review of Systems Review Of Systems: Comprehensive ROS is negative, except as noted in HPI. ED EXAM, SKIN/RASH Exam: See Below Exam Limited By: No Limitations General Appearance: Alert, No Apparent Distress Eye Exam: Bilateral Eye: EOMI, Normal Inspection, PERRL Ears: Normal External Exam Nose: Normal Inspection Throat/Mouth: Normal Inspection Head: Atraumatic, Normocephalic Neck: Normal Inspection, Full Range of Motion Respiratory/Chest: No Respiratory Distress, Lungs Clear, Normal Breath Sounds, No Accessory Muscle Use Peripheral Pulses: 4+: Dorsalis Pedis (L), Dorsalis Pedis (R) Extremities: Other (Left leg is mildly erythematous in the lower aspect; distal lower leg erythematous without induration or warmth. Areas were outlined. Distal CMS is intact right lower leg mild edema with no erythema edema or no use cellulitis, work warmth.) Neurological: Alert, Oriented Psychiatric: Normal Affect Skin: Warm, Dry, Intact, No Rash Location, Skin: Lower Extremity, Left Associated features: Warmth, Tenderness, Inflammation. No: Swelling, Induration Course - Re-Assessments/Exams Free Text/Narrative Re-Assessment/Exam: This patient presents to the ER for evaluation of skin redness. History and clinical are most consistent with a cellulitis. This appears early and there does not appear to be any complication of cellulitis such as necrotizing fasciitis, lymphangitis, lymphadenitis, abscess, osteomyelitis, or sepsis. The patient is not immunosuppressed and his systemic symptoms have been rather mild today. He has not had a fever. The plan is for supportive outpatient management including doxycycline and Bactrim. He was also given tramadol for pain. He should be seen by his primary care provider early next week if this does not improve; he should return to the emergency department over the weekend if this gets worse in any way. The area of cellulitis was outlined. Patient's questions were answered and he was stable at the time of discharge. 04/28/21 19:21 Departure - Departure Time of Disposition: 19:25 Disposition: Home, Self-Care 01 Condition: Good Clinical Impression: Cellulitis - Discharge Information *PRESCRIPTION DRUG MONITORING PROGRAM REVIEWED*: No *COPY OF PRESCRIPTION DRUG MONITORING REPORT IN PATIENT FREDRICK: No Instructions: Cellulitis, Adult Referrals: PCP,None [Primary Care Provider] - Forms: ED Department Discharge Additional Instructions: Take Bactrim DS 2 times per day Take Doxycycline 2 times per day Use Tramadol, every 10 days for severe pain only-use ibuprofen or another non- steroidal anti-inflammatory regularly for pain. Apply warm packs to you leg.
== END 2021-04-28 19:15 | disposition home or self-care (01) ==
LOC: LB.ED 18:17
DX: L03.116 Cellulitis of left lower limb (principal)
CPT/HCPCS: 99283; A9270

== ENCOUNTER 2021-05-06 10:26 | Emergency (ER) | payer MEDICAID ==
[2021-05-06] MEDS: Sodium Bicarbonate 8.4% 50 MEQ/50 ML Syringe IVPUSH ONE (10:26)
[2021-05-06] MEDS: Naloxone 2 MG/2 ML Syringe IVPUSH PRN (10:26)
[2021-05-06] MEDS: EPINEPHrine 1:10,000 1 MG/10 ML Syringe IVPUSH ONE ×4 (10:26)
--- NOTE | 2021-05-06 10:50 | EDM.PDOC ---
ED HPI GENERAL MEDICAL PROBLEM - General Stated Complaint: STOPPED BREATHING Time Seen by Provider: 05/06/21 10:30 Source of Information: Reports: EMS - History of Present Illness INITIAL COMMENTS - FREE TEXT/NARRATIVE: Pt comes in by EMS in Cardiac arrest and CPR in progress. He was found unresponsive in his shop this morning. Time of onset unknown. He was breathing for a short time, then stopped breathing. They could not feel a pulse and CPR was started shortly before EMS arrived. He arrives with a nasal airway - a Patrick airway was tried initially by EMS but was defective. No known medical Hx other then he is on Abx and an antacid. I did talk to his part way thru the code, and she told me he had not been feeling well for the last 4 days. He had no energy, was SOB with any exertion, and looked purplish in color with exertion. He was taking Abx for cellulitis, which he has had before. - Related Data Allergies Allergy/AdvReac Type Severity Reaction Status Date / Time No Known Allergies Allergy Verified 04/29/21 03:12 Home Meds: Home Meds Miconazole Nitrate [Lotrimin AF] 133 gm TP BID 04/30/19 [History] Penicillin V Potassium 500 mg PO DAILY 04/30/19 [History] Doxycycline [Vibramycin] 50 mg PO TID 4 Days #12 cap 04/28/21 [Rx] Past Medical History HEENT History: Reports: None Genitourinary History: Reports: Acute Renal Failure Endocrine/Metabolic History: Reports: Vitamin D Deficiency Dermatologic History: Reports: Chronic Cellulitis - Infectious Disease History Infectious Disease History: Reports: Chicken Pox - Past Surgical History HEENT Surgical History: Reports: LASIK Male Surgical History: Reports: None Endocrine Surgical History: Reports: None Dermatological Surgical History: Reports: None Social & Family History - Family History Family Medical History: No Pertinent Family History - Caffeine Use Caffeine Use: Reports: Soda Other Caffeine Use: diet soda ED ROS GENERAL - Review of Systems Review Of Systems: Comprehensive ROS is negative, except as noted in HPI. Constitutional: Reports: Other (He comes in with no pulse and no rhythm.) ED EXAM, CPR - Physical Exam Exam: See Below Text/Narrative:: CPR continued with 2 IO sites. A Patrick airway was inserted after several attempts. The Lucus was used for compressions throughout his time here. Epi was given x 4, and Bicarb given x 1 with no results. Pulse checks were done sy every 2 minutes with asystole every time. The [facility] was consulted after the 3rd dose of Epi until the end. Their nursing staff assisted us throughout the code. At 10:30 AM the code was called. Course - Re-Assessments/Exams Free Text/Narrative Re-Assessment/Exam: 05/06/21 10:59 Again the code was called after 30 minutes of CPR here, almost an hour total. With 4 doses of Epi and Bicarb. We never had a pulse, just Asystole on pulse checks. I consulted the [facility] and the team here today and everyone agreed to call the code at 10:30 am. Departure - Departure Time of Disposition: 10:30 Disposition: 20 Preliminary Cause of *Q: Cardiac Arrest Clinical Impression: Cardiac arrest, cause unspecified - Discharge Information *PRESCRIPTION DRUG MONITORING PROGRAM REVIEWED*: No *COPY OF PRESCRIPTION DRUG MONITORING REPORT IN PATIENT FREDRICK: No Referrals: PCP,None [Primary Care Provider] -
[2021-05-06] MEDS: Sodium Chloride 0.9% 1,000 ML IV ONE (16:18)
== END 2021-05-06 10:30 | disposition expired ==
LOC: LB.ED 10:26
DX: I46.9 Cardiac arrest, cause unspecified (principal); N17.9 Acute kidney failure, unspecified; Z79.899 Other long term (current) drug therapy
CPT/HCPCS: 36680; 92950; 96374; 99285-25; A0425; A0429; J0171; J2310; J7030